=== PATIENT | female | born 1965 | race Caucasian/White ===

== ENCOUNTER 2017-10-26 23:11 | Emergency (ER) | payer BC ==
[2017-10-27] MEDS ORDERED: TOBRAMYCIN SULF 0.3% OPTH OINT ONE (00:30)
[2017-10-27] MEDS ORDERED: TETANUS & DIPHTHERIA TOX,ADULT 0.5 ML VIAL ONE (00:31)
[2017-10-27] MEDS ORDERED: TETRACAINE HCL 0.5% 2ML OPTH ONE (00:31)
[2017-10-27] MEDS ORDERED: FLUORESCEIN SODIUM 0.6 MG/WRAP ONE (00:44)
--- NOTE | 2017-10-27 00:57 | EDPHYS ---
Physician Documentation [facility] Name: Soco Pineda Age: 51 yrs Sex: Female : 1965 Arrival Date: 10/26/2017 Time: 23:14 Bed Treatment Private MD: ED Physician Alejandro Munson HPI: 10/27 00:30 This 51 yrs old Female presents to ER via Ambulatory with complaints of Eye snw Injury. 00:30 The patient is experiencing pain, The patient sustained a scratch, to the left eye, snw caused by Puppy's paw. Onset: The symptoms/episode began/occurred suddenly, just prior to arrival. Duration: the symptoms are continuous. Patient wears soft contacts, removed after injury and pt is wearing glasses. Severity of symptoms: At their worst the symptoms were mild. The patient has not experienced similar symptoms in the past. It is unknown whether or not the patient has recently seen a physician. states areas stings slightly but no vision change or tearing. 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 - Social history:: Smoking status: Patient/guardian denies using tobacco. - Ebola Screening: : Patient negative for fever greater than or equal to 101.5 degrees Fahrenheit, and additional compatible Ebola Virus Disease symptoms Patient denies exposure to infectious person Patient denies travel to an Ebola-affected area in the 21 days before illness onset. ROS: 10/27 00:29 Constitutional: Negative for fever, chills, and weight loss, ENT: Negative for injury, snw pain, and discharge, Neck: Negative for injury, pain, and swelling, Cardiovascular: Negative for chest pain, palpitations, and edema, Respiratory: Negative for shortness of breath, cough, wheezing, and pleuritic chest pain, Abdomen/GI: Negative for abdominal pain, nausea, vomiting, diarrhea, and constipation, Back: Negative for injury and pain, : Negative for injury, bleeding, discharge, and swelling, MS/Extremity: Negative for injury and deformity, Skin: Negative for injury, rash, and discoloration, Neuro: Negative for headache, weakness, numbness, tingling, and seizure. Eyes: Positive for injury or acute deformity, of the outer aspect of conjuctiva of left eye. Exam: 00:26 Constitutional: This is a well developed, well nourished patient who is awake, alert, snw and in no acute distress. Head/Face: Normocephalic, atraumatic. ENT: Nares patent. No nasal discharge, no septal abnormalities noted. Tympanic membranes are normal and external auditory canals are clear. Oropharynx with no redness, swelling, or masses, exudates, or evidence of obstruction, uvula midline. Mucous membranes moist. Neck: Trachea midline, no thyromegaly or masses palpated, and no cervical lymphadenopathy. Supple, full range of motion without nuchal rigidity, or vertebral point tenderness. No Meningismus. Chest/axilla: Normal chest wall appearance and motion. Nontender with no deformity. No lesions are appreciated. Cardiovascular: Regular rate and rhythm with a normal S1 and S2. No gallops, murmurs, or rubs. Normal PMI, no JVD. No pulse deficits. Respiratory: Lungs have equal breath sounds bilaterally, clear to auscultation and percussion. No rales, rhonchi or wheezes noted. No increased work of breathing, no retractions or nasal flaring. Abdomen/GI: Soft, non-tender, with normal bowel sounds. No distension or tympany. No guarding or rebound. No evidence of tenderness throughout. Back: No spinal tenderness. No costovertebral tenderness. Full range of motion. Skin: Warm, dry with normal turgor. Normal color with no rashes, no lesions, and no evidence of cellulitis. MS/ Extremity: Pulses equal, no cyanosis. Neurovascular intact. Full, normal range of motion. Neuro: Awake and alert, GCS 15, oriented to person, place, time, and situation. Cranial nerves II-XII grossly intact. Motor strength 5/5 in all extremities. Sensory grossly intact. Cerebellar exam normal. Normal gait. 00:26 Eyes: Periorbital structures: appear normal, Pupils: no acute changes, Extraocular movements: no acute changes, Conjunctiva: subconjunctival hemorrhage(s), seen in the left eye, at 3 o'clock, Sclera: no appreciated abnormality. Vital Signs: 08/05 23:38 BP 122 / 65; Pulse 78; Resp 16; Temp 97.2; Pulse Ox 96% ; Weight 54.43 kg; Height 5 ft. tl1 1 in. (154.94 cm); Pain 0/10; 10/27 00:51 BP 116 / 68; Pulse 76; Resp 16; Pulse Ox 98% ; Pain 0/10; jl3 10/26 23:38 Body Mass Index 22.67 (54.43 kg, 154.94 cm) tl1 Visual Acuity: 10/26 23:40 Left Eye Visual acuity 20/20, ; Right Eye Visual acuity 20/20, ; Without Lenses; tl1 Procedures: 10/27 01:30 Eye Exam: tetracaine appears thickened at uptake area, no streaking, possible partial snw thickness puncture with surrounding subconjunctival hemorrhage. MDM: 10/26 23:58 Patient medically screened. snw 10/27 00:50 Data reviewed: vital signs, nurses notes. Data interpreted: Pulse oximetry: on room air snw is 96 %. Interpretation: acceptable. Counseling: I had a detailed discussion with the patient and/or guardian regarding: the historical points, exam findings, and any diagnostic results supporting the discharge/admit diagnosis, the need for outpatient follow up, for definitive care. Special discussion: Based on the history and exam findings, there is no indication for further emergent testing or inpatient evaluation. I discussed with the patient/guardian the need to see the opthamologist for further evaluation of the symptoms. ED course: partial puncture of conjunctiva, uptake of fluorescein into puncture, does not travel, + soft cm sign, looks like partial thickness, shallow puncture of cornea. 00:55 ED course: discussed with Dr. Munson. snw 10/27 00:16 Order name: Eye Tray; Complete Time: 00:51 snw Administered Medications: 00:34 Drug: Tetanus-Diphtheria Toxoid Adult 0.5 ml {Body Wirer: [employer]. Exp: jl3 12/11/2019. Lot #: [id number]. } Route: IM; Site: left deltoid; 01:11 Follow up: Response: No adverse reaction jl3 00:50 Drug: Tobrex 0.3 % 1 application Route: Ophthalmic; Site: left eye; jl3 01:12 Follow up: Response: No adverse reaction jl3 00:50 Drug: Tetracaine Drops 0.5 % 1 drops Route: Ophthalmic; Site: left eye; jl3 01:12 Follow up: Response: No adverse reaction jl3 Disposition: 03:35 Co-signature as Attending Physician, Alejandro Munson MD. pkl Disposition: 10/27/17 00:57 Discharged to Home. Impression: Partial thickness, corneal puncture, Subconjunctival hemorrhage. - Condition is Stable. - Discharge Instructions: Corneal Abrasion, Subconjunctival Hemorrhage. - Prescriptions for Vigamox 0.5 % Ophthalmic Drops - instill 1 drop by OPHTHALMIC route every 8 hours for 7 days; 5 milliliter. - Medication Reconciliation Form, Thank You Letter, Antibiotic Education, Prescription Opioid Use form. - Follow up: Haleigh Thomas MD; When: Tomorrow; Reason: Recheck today's complaints, Continuance of care. - Notes: Corneal puncture Signatures: Alejandro Munson MD MD pkl Lily Layton, TITLE I TEACHER-C TITLE I TEACHER-Csnw Peng Park, BRICK TENDER BRICK TENDER jl3 Patience Barriga, RN RN tl1 Corrections: (The following items were deleted from the chart) 00:30 00:26 Eyes: Periorbital structures: appear normal, Pupils: no acute changes, snw Extraocular movements: no acute changes, Conjunctiva: subconjunctival hemorrhage(s), seen in the left eye, at 7 o'clock, Sclera: no appreciated abnormality, snw 01:12 00:57 10/27/2017 00:57 Discharged to Home. Impression: Partial thickness, corneal jl3 puncture; Subconjunctival hemorrhage. Condition is Stable. Forms are Medication Reconciliation Form, Thank You Letter, Antibiotic Education, Prescription Opioid Use. Follow up: Haleigh Thomas; When: Tomorrow; Reason: Recheck today's complaints, Continuance of care. snw
--- NOTE | 2017-10-27 00:57 | ER ---
Nurse's Notes [facility] Name: Soco Pineda Age: 51 yrs Sex: Female : 1965 Arrival Date: 10/26/2017 Time: 23:14 Bed Treatment Private MD: Diagnosis: Partial thickness, corneal puncture;Subconjunctival hemorrhage Presentation: 10/26 23:35 Presenting complaint: Patient states: Patient states she was playing with her dog and tl1 he pawed her in the left eye and she thinks it is scratched. Transition of care: patient was not received from another setting of care. Mechanism of Injury: scratch from dog paw. The patient denies any loss of vision. Onset of symptoms was October 26, 2017. Risk Assessment: Do you want to hurt yourself or someone else? Patient reports no desire to harm self or others. Initial Sepsis Screen: Does the patient meet any 2 criteria? No. Patient's initial sepsis screen is negative. Does the patient have a suspected source of infection? No. Patient's initial sepsis screen is negative. Care prior to arrival: None. 23:35 Method Of Arrival: Ambulatory tl1 23:35 Acuity: ORESTES 4 tl1 Triage Assessment: 10/27 00:52 General: Appears in no apparent distress. well groomed. 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 - Social history:: Smoking status: Patient/guardian denies using tobacco. - Ebola Screening: : Patient negative for fever greater than or equal to 101.5 degrees Fahrenheit, and additional compatible Ebola Virus Disease symptoms Patient denies exposure to infectious person Patient denies travel to an Ebola-affected area in the 21 days before illness onset. Screenin/06 00:52 Abuse screen: none noted. Nutritional screening: No deficits noted. Tuberculosis jl3 screening: No symptoms or risk factors identified. Fall Risk None identified. Assessment: 10/26 23:44 General: Behavior is calm, cooperative. Pain: Complains of pain in lateral aspect of jl3 conjunctiva of left eye Pain currently is 1 out of 10 on a pain scale. Neuro: No deficits noted. Cardiovascular: No deficits noted. Respiratory: No deficits noted. GI: No deficits noted. : No deficits noted. EENT: Eyes are tearing on outer aspect of conjuctiva of left eye Redness to lateral sclera L. eye. EENT: Sclera/Cornea are reddened in outer aspect of conjuctiva of left eye. Musculoskeletal: No deficits noted. 23:46 General: Pt states was playing with dog and dog accidentally scratched L. eye. Pt had jl3 contact lenses in at the time. [place] some pain to the eye after removing lenses. States pain is currently 1/10. Redness noted to L. lateral sclera. Denies vision disturbances, cardinal movements WNL.. Vital Signs: 23:38 BP 122 / 65; Pulse 78; Resp 16; Temp 97.2; Pulse Ox 96% ; Weight 54.43 kg; Height 5 ft. tl1 1 in. (154.94 cm); Pain 0/10; 10/27 00:51 BP 116 / 68; Pulse 76; Resp 16; Pulse Ox 98% ; Pain 0/10; jl3 10/26 23:38 Body Mass Index 22.67 (54.43 kg, 154.94 cm) tl1 Visual Acuity: 10/26 23:40 Left Eye Visual acuity 20/20, ; Right Eye Visual acuity 20/20, ; Without Lenses; tl1 ED Course: 23:14 Patient arrived in ED. ds1 23:36 Peng Park LVN is Primary Nurse. jl3 23:37 Triage completed. tl1 23:39 Arm band placed on right wrist. tl1 23:39 Patient did not have IV access during this emergency room visit. tl1 23:58 Lily Layton FNP-C is [facility]. snw 23:58 Alejandro Munson MD is Attending Physician. snw 10/27 00:55 Haleigh Thomas MD is Referral Physician. snw 01:07 Assist provider with eye exam Patient tolerated well. jl3 01:11 Patient has correct armband on for positive identification. jl3 Administered Medications: 00:34 Drug: Tetanus-Diphtheria Toxoid Adult 0.5 ml {Service Associate: [employer]. Exp: jl3 12/11/2019. Lot #: [id number]. } Route: IM; Site: left deltoid; 01:11 Follow up: Response: No adverse reaction jl3 00:50 Drug: Tobrex 0.3 % 1 application Route: Ophthalmic; Site: left eye; jl3 01:12 Follow up: Response: No adverse reaction jl3 00:50 Drug: Tetracaine Drops 0.5 % 1 drops Route: Ophthalmic; Site: left eye; jl3 01:12 Follow up: Response: No adverse reaction jl3 Outcome: 00:57 Discharge ordered by MD. lyons 01:07 Discharged to home with significant other. jl3 01:07 Condition: stable 01:07 Discharge instructions given to patient, family, Prescriptions given X 1. 01:12 Patient left the ED. jl3 Signatures: Lily Layton, SALES FACILITATOR-C SALES FACILITATOR-Csnw Kika Thomas ds1 Peng Park, MOBILE DEVELOPER MOBILE DEVELOPER jl3 Patience Barriga, RN RN tl1
== END 2017-10-27 01:12 | disposition home or self-care (01) ==
LOC: ER 23:11
PROC: 08J1XZZ Inspection of Left Eye, External Approach (ICD-10-PCS; principal; 2017-10-27)
DX: S05.02XA Injury of conjunctiva and corneal abrasion without foreign body, left eye, initial encounter (principal); X58.XXXA Exposure to other specified factors, initial encounter; Y93.89 Activity, other specified; Y92.019 Unspecified place in single-family (private) house as the place of occurrence of the external cause; H11.32 Conjunctival hemorrhage, left eye
CPT/HCPCS: 90714; 99283

== ENCOUNTER 2023-07-29 22:07 | Emergency (ER) | payer BC ==
[2023-07-29 23:08] LABS: Absolute Basophils 0.1 K/uL (0-0.5); Absolute Eosinophils 0.1 K/uL (0-0.5); Absolute Lymphocytes (CBC) 2.1 K/uL (0.7-4.9); Absolute Neutrophil 4.9 K/uL (1.8-8.0); Eosinophils % 1.5 % (0-4.4); Hematocrit 38.1 % (36.0-45.0); Hemoglobin 13.2 g/dL (12.0-15.0); Lymphocytes % 25.5 % (15.3-44.8); MCH 31.1 pg (27.0-35.0); MCHC 34.6 g/dL (32.0-36.0); MCV 89.8 fL (80-100); MPV 8.2 fL (7.6-11.3); Monocytes % 11.8 % (3.3-12.3); Neutrophils % 60.2 % (41.7-73.7); Nucleated Red Blood Cells % 0.2 % (0-0); Platelets 252 thou/uL (152-406); RBC Red Blood Cell Count 4.24 M/uL (3.86-4.86); Red Cell Distribution Width 12.6 % (12.1-15.2)
[2023-07-29 23:17] LABS: PT Prothrombin Time 12.1 SECONDS (9.5-12.5); Protime INR 1.1
[2023-07-29] MEDS ORDERED: NA CHLORIDE 0.9% 1,000 ML ONE (23:24)
[2023-07-29 23:27] LABS: ALT/SGPT 20 U/L (13-56); AST/SGOT 11 U/L (15-37); Albumin 3.5 g/dL (3.4-5.0); Albumin/Globulin Ratio 1.2 (1.1-1.8); Alkaline Phosphatase 71 U/L (45-117); Anion Gap 9.3 mEq/L (5.0-15.0); BUN Blood Urea Nitrogen 19 mg/dL (7-18); Bicarbonate 25 mEq/L (21-32); Bilirubin Total 0.5 mg/dL (0.2-1.0); Globulin 2.9 g/dL (2.3-3.5); Glomerular Filtration Rate 88 ml/min (=/>90); Glucose Level 120 mg/dL (74-106); Magnesium 2.2 mg/dL (1.6-2.4); NT PRO-BNP 51 pg/mL (<125); Potassium 3.3 mEq/L (3.5-5.1); Protein, Total 6.4 g/dL (6.4-8.2); Sodium Level 139 mEq/L (136-145); Troponin High Sensitivity 3.2 pg/mL (<58.9)
[2023-07-29 23:33] LABS: Bilirubin Direct < 0.2 mg/dL (0-0.2); Bilirubin Indirect, Calculated 0.3 mg/dL (0.2-0.8)
--- NOTE | 2023-07-30 01:14 | EDPHYS ---
Physician Documentation [facility] Name: Soco Pineda Age: 57 yrs Sex: Female : 1965 Arrival Date: 07/29/2023 Time: 22:07 Bed 8 Private MD: ED Physician Tramaine Chin HPI: 07/28 22:14 This 57 yrs old Female presents to ER via Unassigned with complaints of Rapid sp4 heart rate, General Weakness. 07/29 04:31 57-year-old female presents with complaint of acute tachycardia and generalized sp4 weakness. Sudden onset of tachycardia while watching television this evening. Just prior to arrival . Historical: - Allergies: 07/28 22:27 PENICILLINS; jb4 - PMHx: 22:27 None; jb4 - PSHx: 22:27 hysterectomy; jb4 - Immunization history:: Adult Immunizations up to date. - Infectious Disease History:: Denies. - Social history:: Smoking status: Patient denies any tobacco usage or history of. - Family history:: not pertinent. ROS: 07/29 04:31 Constitutional: Negative for fever, chills, and weight loss, positive for tachycardia sp4 and positive generalized weakness,, positive palpitations All other systems are negative, Exam: 01:03 Constitutional: This is a well developed, well nourished patient who is awake, alert, sp4 and in no acute distress. Head/Face: Normocephalic, atraumatic. Eyes: Pupils equal round and reactive to light, extra-ocular motions intact. Lids and lashes normal. Conjunctiva and sclera are not injected. Cornea within normal limits. Periorbital areas with no swelling, redness, or edema. ENT: Nares patent. No nasal discharge, no septal abnormalities noted. Tympanic membranes are normal and external auditory canals are clear. Oropharynx with no redness, swelling, or masses, exudates, or evidence of obstruction, uvula midline. Mucous membranes moist. Neck: Trachea midline, no thyromegaly or masses palpated, and no cervical lymphadenopathy. Supple, full range of motion without nuchal rigidity, or vertebral point tenderness. Chest/axilla: Normal chest wall appearance and motion. Nontender with no deformity. No lesions are appreciated. Cardiovascular: Regular rate and rhythm with a normal S1 and S2. No gallops, murmurs, or rubs. Normal PMI, no JVD. No pulse deficits. Respiratory: Lungs have equal breath sounds bilaterally, clear to auscultation and percussion. No rales, rhonchi or wheezes noted. No increased work of breathing, no retractions or nasal flaring. Abdomen/GI: Soft, with normal bowel sounds. No distension or tympany. No guarding or rebound. No evidence of tenderness throughout. Back: No spinal tenderness. No costovertebral tenderness. Skin: Warm, dry with normal turgor. Normal color with no rashes, no lesions, and no evidence of cellulitis. MS/ Extremity: Pulses equal, no cyanosis. Neurovascular intact. Full, normal range of motion. Neuro: Awake and alert, GCS 15, oriented to person, place, time, and situation. Cranial nerves II-XII grossly intact. Motor strength 5/5 in all extremities. Sensory grossly intact. Psych: Awake, alert, with orientation to person, place and time. Behavior, mood, and affect are within normal limits 01:03 ECG was reviewed by the Attending Physician. Ventricular rate 78 , EKG time 2225, normal sinus rhythm Vital Signs: 07/28 22:25 BP 116 / 74; Pulse 81; Resp 16; Temp 98.7(O); Pulse Ox 99% on R/A; Weight 53.07 kg (R); jb4 Height 5 ft. 1 in. (R); Pain 0/10; 22:30 BP 126 / 66; Pulse 80; Resp 25; Pulse Ox 97% ; vc1 07/29 00:00 BP 126 / 64; Pulse 77; Resp 24; Pulse Ox 98% ; vc1 07/28 22:25 Body Mass Index 22.11 (53.07 kg, 154.94 cm) jb4 07/28 22:25 Pain Scale: Adult jb4 [place] Coma Score: 04:31 Eye Response: spontaneous(4). Motor Response: obeys commands(6). Verbal Response: sp4 oriented(5). Total: 15. MDM: 07/28 22:14 Patient medically screened. sp4 07/29 01:03 ED course: EXAM DESCRIPTION: Chest Single View CLINICAL HISTORY: CHEST PAIN COMPARISON: sp4 None FINDINGS: Cardiac silhouette is within normal limits. EKG leads project over the chest. There is no focal parenchymal or pleural disease. There is no acute osseous process visualized. IMPRESSION: No evidence of acute cardiopulmonary disease.. 04:31 Differential Diagnosis altered mental status, sepsis, flu. Data reviewed: vital signs, 4 nurses notes, lab test result(s), EKG, radiologic studies, plain films. Consideration of Admission/Observation Escalation of care including admission/observation considered. ED course: Patient feels much better after IV fluid hydration. Patient discharged home after workup proved to be unremarkable. Patient advised to see a eating disorder psychologist locally for Holter monitor and echocardiogram. Patient is chest pain-free. . 07/28 22:14 Order name: Basic Metabolic Panel; Complete Time: 01:05 [facility] 07/28 22:14 Order name: CBC with Diff; Complete Time: 01: [facility] 07/28 22:14 Order name: LFT's; Complete Time: 01:05 [facility] 07/28 22:14 Order name: Magnesium; Complete Time: 01:05 [facility] 07/28 22:14 Order name: NT PRO-BNP; Complete Time: 01:05 [facility] 07/28 22:14 Order name: PT-INR; Complete Time: 01:05 [facility] 07/28 22:14 Order name: Troponin HS; Complete Time: 01:05 [facility] 07/28 22:58 Order name: T4 Free; Complete Time: 01:05 [facility]MS 07/28 22:58 Order name: Thyroid Stimulating Hormone; Complete Time: 01:05 [facility] 07/28 22:14 Order name: XRAY Chest (1 view) [facility] 07/28 22:14 Order name: EKG; Complete Time: 22:14 [facility] 07/28 22:14 Order name: Cardiac monitoring; Complete Time: 22:44 [facility] 07/28 22:14 Order name: EKG - Nurse/Tech; Complete Time: :44 [facility] 07/28 22:14 Order name: IV Saline Lock; Complete Time: :45 [facility] 07/28 22:14 Order name: Labs collected and sent; Complete Time: :45 [facility] 07/28 22:14 Order name: O2 Per Protocol; Complete Time: :45 [facility] 07/28 22:14 Order name: O2 Sat Monitoring; Complete Time: :45 4 EC:03 Rate is 78 beats/min. Rhythm is regular, Normal Sinus Rhythm. QRS [place] is Normal. HI sp4 interval is normal. QRS interval is normal. QT interval is normal. No Q waves. T waves are Normal. No ST changes noted. Clinical impression: Normal ECG. Interpreted by me. Reviewed by me. Administered Medications: 07/28 23:39 Drug: NS 0.9% IV 1000 ml IV at 1 bolus Per protocol; 1000 mL bolus Route: IV; Rate: 1 ha1 bolus; Site: right wrist; 07/29 00:39 Follow up: IV Status: Completed infusion; IV Intake: 1000ml vc1 Disposition Summary: 07/30/23 01:13 Discharge Ordered Problem: new sp4 Symptoms: have improved sp4 Condition: Stable sp4 Diagnosis - Tachycardia, unspecified sp4 - Palpitations sp4 Followup: sp4 - With: Renzo Irby MD - When: 7 - 10 days - Reason: Recheck today's complaints Discharge Instructions: - Discharge Summary Sheet sp4 - Palpitations, [id number] sp4 Forms: - Patient Portal Instructions sp4 Signatures: Dispatcher [employer] Lucius Solo RN RN jb4 Roma Del Toro RN RN ha1 Tramaine Chin MD MD sp4 Phylicia Marcelino RN vc1 Corrections: (The following items were deleted from the chart) 07/28 22:28 22:27 Allergies: No Known Allergies; jb4 jb4 22:28 22:27 PMHx: Unable to Obtain; jb4 jb4 22:58 22:42 THYROID STIMULAT HORMONE+C.LAB.BRZ ordered. EDNY EDMS 22:58 22:42 T4 FREE+C.LAB.BRZ ordered. EDMS EDMS
--- NOTE | 2023-07-30 01:14 | ER ---
Nurse's Notes [facility] Name: Soco Pineda Age: 57 yrs Sex: Female : 1965 Arrival Date: 07/29/2023 Time: 22:07 Bed 8 Private MD: Diagnosis: Tachycardia, unspecified;Palpitations Presentation: 07/28 22:25 Chief complaint: Patient states: My heart was racing and it was 123 and it went down. jb4 It hit 118 at one point and is back down. Coronavirus screen: At this time, the client does not indicate any symptoms associated with coronavirus-19. Ebola Screen: No symptoms or risks identified at this time. Initial Sepsis Screen: Does the patient meet any 2 criteria? No. Patient's initial sepsis screen is negative. Does the patient have a suspected source of infection? No. Patient's initial sepsis screen is negative. Risk Assessment: Do you want to hurt yourself or someone else? Patient reports no desire to harm self or others. Onset of symptoms was July 29, 2023. Transition of care: patient was not received from another setting of care. 22:25 Method Of Arrival: Ambulatory jb4 22:25 Acuity: ORESTES 3 jb4 Triage Assessment: 22:30 General: Appears in no apparent distress. Behavior is cooperative, anxious. vc1 Cardiovascular: Reports palpitations. Historical: - Allergies: 22:27 PENICILLINS; jb4 - PMHx: 22:27 None; jb4 - PSHx: 22:27 hysterectomy; jb4 - Immunization history:: Adult Immunizations up to date. - Infectious Disease History:: Denies. - Social history:: Smoking status: Patient denies any tobacco usage or history of. - Family history:: not pertinent. Screenin:30 [facility] ED Fall Risk Assessment (Adult) History of falling in the last 3 months, vc1 including since admission No falls in past 3 months (0 pts) Confusion or Disorientation No (0 pts) Intoxicated or Sedated No (0 pts) Impaired Gait No (0 pts) Mobility Assist Device Used No (0 pt) Altered Elimination No (0 pt) Score/Fall Risk Level 0 - 2 = Low Risk Oriented to surroundings, Maintained a safe environment, Educated pt \T\ family on fall prevention, incl call for assistance when getting out of bed. Abuse screen: Denies threats or abuse. Nutritional screening: No deficits noted. Tuberculosis screening: No symptoms or risk factors identified. Assessment: 22:30 General: Appears in no apparent distress. Behavior is cooperative, anxious. Pain: vc1 Denies pain. Neuro: Level of Consciousness is awake, alert, obeys commands, Oriented to person, place, time, situation. Cardiovascular: Reports palpitations, Denies chest pain, Heart tones S1 S2 Patient's skin is warm and dry. Chest pain is denied. Respiratory: Airway is patent Respiratory effort is even, unlabored, Respiratory pattern is regular, symmetrical, Breath sounds are clear bilaterally. GI: No signs and/or symptoms were reported involving the gastrointestinal system. Abdomen is flat, non-distended. : No deficits noted. No signs and/or symptoms were reported regarding the genitourinary system. EENT: No deficits noted. No signs and/or symptoms were reported regarding the EENT system. Derm: Skin is intact, is healthy with good turgor, Skin is dry, Skin is pink, warm \T\ dry. Skin temperature is warm. Musculoskeletal: No deficits noted. No signs and/or symptoms reported regarding the musculoskeletal system. Circulation, motion, and sensation intact. Range of motion: intact in all extremities. 07/29 00:17 Reassessment: Patient appears in no apparent distress at this time. No changes from vc1 previously documented assessment. Patient and/or family updated on plan of care and expected duration. Pain level reassessed. Patient is alert, oriented x 3, equal unlabored respirations, skin warm/dry/pink. 01:56 Reassessment: Patient appears in no apparent distress at this time. No changes from vc1 previously documented assessment. Patient and/or family updated on plan of care and expected duration. Pain level reassessed. Patient is alert, oriented x 3, equal unlabored respirations, skin warm/dry/pink. Patient denies pain at this time. Cardiovascular: Denies chest pain, palpitations. Vital Signs: 07/28 22:25 BP 116 / 74; Pulse 81; Resp 16; Temp 98.7(O); Pulse Ox 99% on R/A; Weight 53.07 kg (R); jb4 Height 5 ft. 1 in. (R); Pain 0/10; 22:30 BP 126 / 66; Pulse 80; Resp 25; Pulse Ox 97% ; vc1 0508 00:00 BP 126 / 64; Pulse 77; Resp 24; Pulse Ox 98% ; vc1 07/28 22:25 Body Mass Index 22.11 (53.07 kg, 154.94 cm) jb4 07/28 22:25 Pain Scale: Adult jb4 Matti Coma Score: 04:31 Eye Response: spontaneous(4). Motor Response: obeys commands(6). Verbal Response: sp4 oriented(5). Total: 15. ED Course: 07/28 22:10 Patient arrived in ED. im 22:13 Tramaine Chin MD is Attending Physician. sp4 22:27 Triage completed. jb4 22:27 Arm band placed on right wrist. jb4 22:30 Patient has correct armband on for positive identification. Placed in gown. Bed in low vc1 position. Call light in reach. Side rails up X2. promotion writer on. Pulse ox on. NIBP on. 22:32 EKG done, by ED staff, reviewed by Tramaine Chin MD. oe 22:45 Initial lab(s) drawn, by me. Inserted saline lock: 20 gauge in left wrist, using vc1 aseptic technique. Blood collected. 22:50 XRAY Chest (1 view) In Process Unspecified. EDMS 07/29 00:16 Phylicia Marcelino, RAAD is Primary Nurse. vc1 01:12 Renzo Irby MD is Referral Physician. sp4 01:53 Provided Education on: follow up with Dr. Irby for possible holter. vc1 01:53 No provider procedures requiring assistance completed. IV discontinued, intact, vc1 bleeding controlled, No redness/swelling at site. Pressure dressing applied. Administered Medications: 07/28 23:39 Drug: NS 0.9% IV 1000 ml IV at 1 bolus Per protocol; 1000 mL bolus Route: IV; Rate: 1 ha1 bolus; Site: right wrist; 07/29 00:39 Follow up: IV Status: Completed infusion; IV Intake: 1000ml vc1 Medication: :53 VIS not applicable for this client. vc1 Intake: 00:39 IV: 1000ml; Total: 1000ml. vc1 Outcome: 01:13 Discharge ordered by . sp4 01:53 Discharged to home ambulatory, with significant other, vc1 01:53 Condition: improved 01:53 Discharge instructions given to patient, significant other, Instructed on discharge instructions, follow up and referral plans. Demonstrated understanding of instructions, follow-up care, 01:54 Patient left the ED. vc1 Signatures: Dispatcher [employer] EDMS Lucius Ennis, RN RN jb4 Maurice Carreno Vanessa, RN RN vc1 Roma Del Toro RN RN ha1 Tramaine Chin MD MD sp4 Lilly Alarcon Corrections: (The following items were deleted from the chart) 07/28 22:28 22:27 Allergies: No Known Allergies; jb4 jb4 : 22:27 PMHx: Unable to Obtain; jb4 jb4 07/29 00:47 00:00 BP 126 / 6; Pulse 77bpm; Resp 24bpm; Pulse Ox 98%; vc1 vc1
[2023-07-30 02:22] VITALS: BP 126/64; TEMP 98.7; O2SAT 98
--- NOTE | 2023-07-30 12:35 | RAD REPORT ---
EXAM DESCRIPTION: RAD - Chest Single View - 07/29/2023 10:48 pm CLINICAL HISTORY: CHEST PAIN COMPARISON: None FINDINGS: Cardiac silhouette is within normal limits. EKG leads project over the chest. There is no focal parenchymal or pleural disease. There is no acute osseous process visualized. IMPRESSION: No evidence of acute cardiopulmonary disease. Electronically signed by: Neri Singh MD 07/29/2023 11:19 PM CDT Due to temporary technical issues with the PACS/Fluency reporting system, reports are being signed by the in house radiologist without review as a courtesy to ensure prompt reporting. The interpreting r adiologist is fully responsible for the content of the report.
--- NOTE | 2023-07-31 14:05 | EKG ---
Test Date: 2023-07-29 Test Time: 22:25:29 Transmission Design Engineer: NATALIA MEASUREMENT RESULTS: Intervals: Rate: 78 MS: 136 QRSD: 98 QT: 362 QTc: 412 [place]: P: 72 MS: 136 QRS: 80 T: 77 INTERPRETIVE STATEMENTS: Normal sinus rhythm Normal ECG No previous ECG available for comparison Electronically Signed On 07-31-23 14:00:41 CDT by Renzo Irby
== END 2023-07-30 01:54 | disposition home or self-care (01) ==
LOC: ER 22:07
DX: R00.0 Tachycardia, unspecified (principal); R00.2 Palpitations; R53.1 Weakness; Z88.0 Allergy status to penicillin
CPT/HCPCS: 93005; 85025; 80048; 36415; 83735; 85610; 80076; 84443; 84484; 84439; 83880; 71045; J7030

== ENCOUNTER 2023-10-23 13:00 | Day surgery (SDC) | payer BC ==
[2023-10-22 09:22] LABS: Absolute Basophils 0.1 K/uL (0-0.5); Absolute Eosinophils 0.1 K/uL (0-0.5); Absolute Monocytes 0.6 K/uL (0.1-1.3); Absolute Neutrophil 4.4 K/uL (1.8-8.0); Eosinophils % 1.2 % (0-4.4); Hematocrit 42.7 % (36.0-45.0); Hemoglobin 14.5 g/dL (12.0-15.0); Lymphocytes % 16.1 % (15.3-44.8); MCH 31.2 pg (27.0-35.0); MCV 91.7 fL (80-100); Monocytes % 9.6 % (3.3-12.3); Neutrophils % 72.1 % (41.7-73.7); Platelets 251 thou/uL (152-406); RBC Red Blood Cell Count 4.66 M/uL (3.86-4.86); Red Cell Distribution Width 12.6 % (12.1-15.2)
[2023-10-22 09:30] LABS: PT Prothrombin Time 11.7 SECONDS (9.4-12.5); PTT, Activated Partial Thromb 36.3 SECONDS (24.3-36.9); Protime INR 1.05
[2023-10-22 09:33] LABS: Anion Gap 6.1 mEq/L (5.0-15.0); Potassium 4.1 mEq/L (3.5-5.1)
--- NOTE | 2023-10-22 11:40 | EKG ---
Test Date: 2023-10-22 Test Time: 09:05:47 Surgical Appliances Salesperson: NIYA MEASUREMENT RESULTS: Intervals: Rate: 81 NC: 126 QRSD: 84 QT: 376 QTc: 436 [place]: P: 75 NC: 126 QRS: 86 T: 79 INTERPRETIVE STATEMENTS: Normal sinus rhythm Minimal voltage criteria for LVH, may be normal variant Borderline ECG Compared to ECG 10/08/2023 13:20:43 T-wave abnormality no longer present Electronically Signed On 10-22-23 11:39:28 CDT by Jameson Carmona
[2023-10-23] MEDS ORDERED: NA CHLORIDE 0.9% 500 ML ONE (13:23)
[2023-10-23] MEDS ORDERED: HEPA 1000U/500MLS 2,000 UNIT/1,000 ML BAG IV ONE (15:01)
[2023-10-23] MEDS ORDERED: VERAPAMIL HCL 10 MG/4 ML VIAL IV ONE (15:02)
[2023-10-23] MEDS ORDERED: HEPARIN 5000 UNIT/ML 1 ML VIAL ONE (15:02)
[2023-10-23] MEDS ORDERED: ATROPINE SULF 1 MG/10 ML SYR IV ONE (15:02)
[2023-10-23] MEDS ORDERED: FENTANYL CITR 100 MCG/2 ML ONE (15:02)
[2023-10-23] MEDS ORDERED: MIDAZOLAM HCL 2 MG/2 ML INJ ONE (15:02)
[2023-10-23] MEDS ORDERED: LIDOCAINE 1% 20 ML MDV ONE (15:03)
--- NOTE | 2023-10-23 16:49 | OP ---
Date of Procedure: 10/23/2023 Surgeon: PRATIK QUIROZ Procedure Performed: Peripheral angiogram with runoff. Indication: Peripheral vascular disease. Access: Right common femoral artery 4-Indian, closed with manual pressure. Complications: None. Bleeding: Less than 50 mL. Anesthesia: Total sedation time is 20 minutes. Description Of Procedure: After risks, benefits, and alternatives were explained, patient agreed to the procedure and signed informed consent. The patient was brought into the cardiac catheterization laboratory, prepped and draped in the usual sterile fashion. Then, I accessed right common femoral a rtery using micropuncture kit and ultrasound guidance and placed 4-Indian [place] sheath and took a 4-Indian straight pigtail catheter in distal aorta, performed aortogram and runoff. Then, I removed the catheter and the sheath. Manual pressure was used for closure with good hemostasis. Findings: 1.Distal aorta is widely patent. 2.Right lower extremity: Right common iliac and internal iliacs are widely patent. The right exter nal iliac has 50% stenosis that is likely fibromuscular dysplasia and then the common femoral artery is widely open. SFA and profunda widely open and triple vessel below the knee are widely open. No d isease. 3.Left lower extremity: Left common iliac is normal. Left internal iliac is normal. Left external iliac has focal 30% and left common femoral is normal. Left profunda and SFA popliteal artery are n ormal and the triple vessel runoff are normal. Conclusion: Moderate peripheral vascular disease. Plan: Medical management. /MODL Voice ID: [id number] Report ID: [id number]
[2023-10-23 19:20] VITALS: BP 114/65; O2SAT 100
== END 2023-10-23 19:31 | disposition home or self-care (01) ==
LOC: CCL 13:00
PROVIDERS: ATTEND Internal Medicine
DX: I70.213 Atherosclerosis of native arteries of extremities with intermittent claudication, bilateral legs (principal); I25.10 Atherosclerotic heart disease of native coronary artery without angina pectoris; I34.0 Nonrheumatic mitral (valve) insufficiency; E78.5 Hyperlipidemia, unspecified; Z88.0 Allergy status to penicillin
CPT/HCPCS: 93005; 85025; 80048; 36415; 85610; 85730; 36200; 75630; 76937; C1893; J1644; J2001; J0461; J2250; J3010; J7040; 99152; 99153